=== PATIENT | male | born 1955 | race Hispanic/Latino ===

== ENCOUNTER 2018-02-23 11:53 | Inpatient (IN) | payer OTHER ==
[2018-02-23 11:53] VITALS: BMI 26.4
[2018-02-23 13:43] LABS: BASO # 0.1 K/uL (0.0-0.2)
[2018-02-23 13:50] LABS: BASO % 0.6 % (0.0-2.0); EOS % 0.1 % (0.0-4.0); LYMPH # 1.2 K/uL (1.0-4.3); LYMPH % 11.3 % (20.0-40.0); MEAN CORPUSCULAR HEMOGLOBIN 17.1 pg (27.0-31.0); MEAN CORPUSCULAR HGB CONC 30.2 g/dL (33.0-37.0); MEAN PLATELET VOLUME 8.8 fL (7.2-11.7); MONO % 9.5 % (0.0-10.0); NEUT # 8.4 K/uL (1.8-7.0); NEUT % 78.5 % (50.0-75.0); NRBC % 0.1 % (0.0-2.0); RBC 3.38 Mil/uL (4.40-5.90); RED CELL DISTRIBUTION WIDTH 20.6 % (11.5-14.5); WHITE BLOOD COUNT 10.7 K/uL (4.8-10.8)
[2018-02-23 13:54] LABS: HEMOGLOBIN 5.8 g/dL (12.0-18.0); INR 1.1; MEAN CELL VOLUME 56.6 fL (80.0-94.0); PROTHROMBIN TIME 12.4 SECONDS (9.7-12.2)
--- NOTE | 2018-02-23 14:18 | C.PDOC ---
History Of Present Illness 62 y/o male sent in by center mgr Dr. Jean for low hemoglobin. Bloodwork was done 2 days ago which his hemoglobin was 4 at the time. Patient is complaining of weakness and denies blood in urine or stool, black tarry stool, abdominal pain, or fever. Patient has history of transfusion 4 months ago and had bleeding gastric ulcer. Chief Complaint (Nursing): Abnormal Labs History Per: Patient History/Exam Limitations: no limitations Onset/Duration Of Symptoms: Days Current Symptoms Are (Timing): Still Present Past Medical History Reviewed: Historical Data, Nursing Documentation, Vital Signs Vital Signs: Last Vital Signs Temp 98 F 02/23/18 12:22 Pulse 79 02/23/18 13:38 Resp 14 02/23/18 13:38 BP 127/65 02/23/18 13:38 Pulse Ox 100 02/23/18 13:38 - Medical History PMH: Anemia, Diabetes, Gall Bladder Disease (POLYP/S/P CHOLECYSTECTOMY), HTN Denies: Chronic Kidney Disease Surgical History: Cholecystectomy, Tonsillectomy - [facility] Procedures EXCISION OF DUODENUM, ENDO, DIAGN (10/23/17) EXCISION OF STOMACH, ENDO, DIAGN (10/23/17) TRANSFUSE NONAUT RED BLOOD CELLS IN PERIPH VEIN, PERC (10/23/17) Family History: States: No Known Family Hx - Social History Hx Alcohol Use: Yes Hx Substance Use: No - Immunization History Hx Tetanus Toxoid Vaccination: No Hx Influenza Vaccination: Yes (2017) Hx Pneumococcal Vaccination: No Review Of Systems Except As Marked, All Systems Reviewed And Found Negative. Constitutional: Positive for: Weakness. Negative for: Fever Cardiovascular: Negative for: Chest Pain Respiratory: Negative for: Shortness of Breath Gastrointestinal: Negative for: Abdominal Pain, Hematochezia Genitourinary: Negative for: Dysuria, Hematuria Physical Exam - Physical Exam Appears: Non-toxic, No Acute Distress Skin: Pale Head: Atraumatic, Normacephalic Eye(s): bilateral: Conjunctiva Pale Oral Mucosa: Moist Neck: Supple Cardiovascular: Rhythm Regular, No Murmur Respiratory: Normal Breath Sounds, No Rales, No Rhonchi, No Wheezing Gastrointestinal/Abdominal: Soft, No Tenderness Extremity: Bilateral: Atraumatic, Normal ROM Neurological/Psych: Oriented x3, Normal Speech ED Course And Treatment - Laboratory Results Result Diagrams: 02/23/18 13:38 02/23/18 13:38 Lab Results: PT 12.4 SECONDS (9.7-12.2) H 02/23/18 13:38 INR 1.1 02/23/18 13:38 APTT 26 SECONDS (21-34) 02/23/18 13:38 O2 Sat by Pulse Oximetry: 100 (RA) Pulse Ox Interpretation: Normal Medical Decision Making Medical Decision Making: Plan: --Blood work Disposition - Disposition Disposition: HOSPITALIZED Disposition Time: 14:30 Condition: GUARDED - Clinical Impression Clinical Impression: Symptomatic anemia - Scribe Statement The provider has reviewed the documentation as recorded by the Isa Card Provider Attestation: All medical record entries made by the Isa were at my direction and personally dictated by me. I have reviewed the chart and agree that the record accurately reflects my personal performance of the history, physical exam, medical decision making, and the department course for this patient. I have also personally directed, reviewed, and agree with the discharge instructions and disposition.
[2018-02-23 14:24] LABS: ALB/GLOB RATIO 1.4 (1.0-2.1); ALBUMIN 4.7 g/dL (3.5-5.0); ALT/SGPT 17 U/L (21-72); AST/SGOT 23 U/L (17-59); BLOOD UREA NITROGEN 18 mg/dL (9-20); CALCIUM 9.1 mg/dl (8.6-10.4); GFR NON-AFRICAN AMERICAN > 60
--- NOTE | 2018-02-23 15:02 | CP.PCM.HP ---
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 Patient is also complaining of severe fatigue tiredness and dyspnea on exertion. Patient is a history of iron deficiency anemia as received blood transfusion and iron IV therapy year ago. Patient also had an upper endoscopy done which showed a gastric ulcer which was not bleeding biopsies were negative for any cancer Currently patient is denying any GI symptoms of epigastric pain and nausea hematemesis melena or black stools or reflux symptoms. PAST HIST. Patient has a history of type II diabetes hypertension had bilateral DVT of the lower extremities and has taken blood thinner for a year and discontinued patient also had a hernia operation. PERSONAL HIST: Smoking. N Alcohol. N Allergy N Travel_- . FAMILY HIST : ROS : Constitutional: Negative for weight change, chills, night sweats, fatigue and usage of assist device. Eyes: Negative for redness, swelling, itching, discharge, vision changes, blurry vision, double vision, glaucoma, cataracts, Ears: Negative for hearing loss, ringing, , tinnitus, vertigo Nose: Negative for rhinorrhea, stuffiness, sniffing, itching, postnasal drip, discoloration, nasal congestion and epistaxis. Throat: Negative for throat clearing, sore throat, hoarseness, difficulty swa llowing and difficulty speaking. Respiratory: Negative for cough, chest tightness, sputum or phlegm, chronic cough, hemoptysis, wheezing, snoring at night, pleuritic chest pain and daytime somnolence. Cardiovascular: Negative for chest pain, palpitations, orthopnea, PND, Edema of legs, leg cramps, angina, claudication, , irregular heartbeat, Neurology: Negative for irritability, muscle weakness, numbness and tingling, seizures, tremors, migraines, slurred speech, syncope, memory loss, mood changes, recurrent headaches Gastrointestinal: Negative for difficulty swallowing, diarrhea, constipation, black stools, rectal bleeding, nausea, flatulence, reflux, poor appetite, changes in bowel habits, abdominal pain Genitourinary: Negative for frequent urination, hematuria, discharge, incon tinence, urinary retention, frequent UTI, Psychiatric: Negative for depression, anxiety/panic, suicidal tendencies, Musculoskeletal: Negative for swollen joints, back pain, , neck pain, morning stiffness of joints, . Skin: Negative for rash, ulcers, itching, dry skin and pigmented lesions. P/E: Constitutional: Appears stated age and in no apparent distress. Head: Normocephalic. Ears: External ear canals patent without inflammation. Tympanic membranes intact with normal light reflex and landmark. Eyes: Pupils are central, bilaterally equal, symmetrical and reacts to light with normal movements and no icterus, pallor. Is noted Nose: External nares are patent. Mucosa is pink Mouth-Throat: Good general appearance and condition. No post-pharyngeal/oropharyngeal erythema and ton sillar hypertrophy. Good dental hygiene. Neck-Lymphatic: Neck is supple with normal ROM, no thyromegaly, lymph nodes or masses. JVD is normal with no carotid bruit. Lungs: Clear to percussion and auscultation with bilateral normal air entry. Cardiovascular: S1 and S2 are normal with no murmurs, gallops and rub. GI Exam: No hepatomegaly. Abdomen is soft and non-tender. No Organomegaly , masses or hernias are evident and bowel sounds are normal and active. Neurology: Higher function and all cranial nerves intact, with no gross motor or sensory deficit. Superficial and deep reflexes are normal with downwards planters. No cerebellar deficit with normal gait. Musculoskeletal: No tender spots with normal curvature of the spine with no swelling or restricted ROM of the small and large joints. Extremities: Homans sign absent. Intact pulses with no pitting edema, calf tenderness or skin color changes. Skin: No rash, eruptions or abnormal skin pigmentation LAB/RADIOLOGY: ASSESMENT : Severe symptomatic anemia probably iron deficiency no active bleeding currently noted. Patient will need blood transfusion and possible iron therapy History of hypertension diabetes stable History of DVT in the past. Present on Admission - Present on Admission Any Indicators Present on Admission: No Past Patient History - Infectious Disease Hx of Infectious Diseases: None - Past Medical History & Family History Past Medical History?: Yes - Past Social History Smoking Status: Never Smoked - CARDIAC Hx Hypertension: Yes - PULMONARY Hx Respiratory Disorders: No - NEUROLOGICAL Hx Neurological Disorder: No - HEENT Hx HEENT Problems: Yes Hx Cataracts: Yes (IOLI LEFT) - RENAL Hx Chronic Kidney Disease: No - ENDOCRINE/METABOLIC Hx Endocrine Disorders: Yes Hx Diabetes Mellitus Type 2: Yes - HEMATOLOGICAL/ONCOLOGICAL Hx Anemia: Yes - INTEGUMENTARY Hx Dermatological Problems: No - MUSCULOSKELETAL/RHEUMATOLOGICAL Hx Musculoskeletal Disorders: No - GASTROINTESTINAL Hx Gall Bladder Disease: Yes (POLYP/S/P CHOLECYSTECTOMY) - GENITOURINARY/GYNECOLOGICAL Hx Genitourinary Disorders: No - PSYCHIATRIC Hx Substance Use: No - SURGICAL HISTORY Hx Cholecystectomy: Yes Hx Tonsillectomy: Yes - ANESTHESIA Hx Anesthesia: Yes Hx Anesthesia Reactions: No Hx Malignant Hyperthermia: No Meds Allergies/Adverse Reactions: Allergies Allergy/AdvReac Type Severity Reaction Status Date / Time No Known Allergies Allergy Verified 10/23/17 14:17 Results - Vital Signs Recent Vital Signs: Last Vital Signs Temp 98 F 02/23/18 12:22 Pulse 81 02/23/18 14:38 Resp 12 02/23/18 14:38 BP 132/65 02/23/18 14:38 Pulse Ox 100 02/23/18 14:38 - Labs Result Diagrams: 02/23/18 13:38 02/23/18 13:38 Labs: Laboratory Results - last 24 hr 02/23/18 02/23/18 02/23/18 13:38 13:38 13:38 WBC 10.7 RBC 3.38 L Hgb 5.8 L* D Hct 19.1 L MCV 56.6 L D MCH 17.1 L MCHC 30.2 L RDW 20.6 H Plt Count 402 H MPV 8.8 Neut % (Auto) 78.5 H Lymph % (Auto) 11.3 L Owsley % (Auto) 9.5 Eos % (Auto) 0.1 Baso % (Auto) 0.6 Neut # (Auto) 8.4 H Lymph # (Auto) 1.2 Owsley # (Auto) 1.0 H Eos # (Auto) 0.0 Baso # (Auto) 0.1 PT 12.4 H INR 1.1 APTT 26 Sodium 134 Potassium 4.1 Chloride 98 Carbon Dioxide 21 L Anion Gap 19 BUN 18 Creatinine 0.7 L Est GFR ( Amer) > 60 Est GFR (Non-Af Amer) > 60 Random Glucose 165 H D Calcium 9.1 Total Bilirubin 0.5 AST 23 ALT 17 L D Alkaline Phosphatase 82 Total Protein 8.0 Albumin 4.7 Globulin 3.3 Albumin/Globulin Ratio 1.4 Blood Type Antibody Screen 02/23/18 13:38 WBC RBC Hgb Hct MCV MCH MCHC RDW Plt Count MPV Neut % (Auto) Lymph % (Auto) Owsley % (Auto) Eos % (Auto) Baso % (Auto) Neut # (Auto) Lymph # (Auto) Owsley # (Auto) Eos # (Auto) Baso # (Auto) PT INR APTT Sodium Potassium Chloride Carbon Dioxide Anion Gap BUN Creatinine Est GFR ( Amer) Est GFR (Non-Af Amer) Random Glucose Calcium Total Bilirubin AST ALT Alkaline Phosphatase Total Protein Albumin Globulin Albumin/Globulin Ratio Blood Type B POSITIVE Antibody Screen Negative
[2018-02-23] MEDS: (Novolin R) Insulin Human Regular 100 units/ml vial SC SCH (21:46)
[2018-02-24] MEDS: (Novolin R) Insulin Human Regular 100 units/ml vial SC SCH ×4 (08:00→22:09)
[2018-02-24 08:05] LABS: BASO % 0.5 % (0.0-2.0); EOS # 0.1 K/uL (0.0-0.7); EOS % 1.2 % (0.0-4.0); HEMOGLOBIN 7.2 g/dL (12.0-18.0); LYMPH # 1.4 K/uL (1.0-4.3); LYMPH % 21.2 % (20.0-40.0); MEAN CORPUSCULAR HEMOGLOBIN 19.6 pg (27.0-31.0); MEAN CORPUSCULAR HGB CONC 31.2 g/dL (33.0-37.0); MONO # 0.9 K/uL (0.0-0.8); MONO % 12.6 % (0.0-10.0); NEUT # 4.4 K/uL (1.8-7.0); NEUT % 64.5 % (50.0-75.0); NRBC % 0.2 % (0.0-2.0); RBC 3.66 Mil/uL (4.40-5.90); RED CELL DISTRIBUTION WIDTH 29.1 % (11.5-14.5); WHITE BLOOD COUNT 6.8 K/uL (4.8-10.8)
[2018-02-24 08:14] LABS: MEAN CELL VOLUME 62.8 fL (80.0-94.0)
[2018-02-24 08:54] LABS: ALB/GLOB RATIO 1.2 (1.0-2.1); ALBUMIN 3.7 g/dL (3.5-5.0); ALT/SGPT 22 U/L (21-72); AST/SGOT 16 U/L (17-59); BLOOD UREA NITROGEN 17 mg/dL (9-20); CALCIUM 8.6 mg/dl (8.6-10.4); GFR NON-AFRICAN AMERICAN > 60
[2018-02-24 12:50] LABS: IRON 17 ug/dL (49-181)
[2018-02-24 13:02] LABS: % IRON SATURATION 4 (20-55); TOTAL IRON BINDING CAPACITY 457 ug/dL (250-450)
--- NOTE | 2018-02-24 14:30 | CP.PCM.PN ---
Subjective - Date & Time of Evaluation Date of Evaluation: 02/24/18 Time of Evaluation: 14:29 - Subjective Subjective: CHIEF COMPLAINTS TODAY : No specific complaints After 2 packed cells hemoglobin is 7.5 ROS. HEENT : N. Resp : No cough, wheezing ,pleuritic CP ,or hemoptysis Cardio : No anginal CP, PND, orthopnea, palpitation GI : No abd.pain, n/v ,diarrhea or GI bleeding . [employer] : No headache, vertigo, focal deficit. Musculoskel : No joint swelling , Derm : No rash Psych : Normal affect. Ext : No swelling ,calf pain PE. Pt. is alert awake in no distress. V.S As noted in the chart Head ,ear nose,throat and eyes : Normal. Neck : Supple with normal carotids. Lungs: Clear air entry. Heart : S1 & S2 normal with S4. No murmur. Abd : Soft non tender with normal bowel sounds. Neuro : Moves all ext. with no localized deficit. Ext : No edema with intact pulses.Non tender calves Derm : No rashes or decubitus ulcer. LABS/RADIOLOGY: CT scan of the abdomen shows enteritis and peptic ulcer disease ASSESSMENT/PLAN : Discussed with hematology for further workup. Objective - Vital Signs/Intake and Output Vital Signs (last 24 hours): Temp Pulse Resp BP Pulse Ox 99.0 F 72 18 112/68 98 02/24/18 07:00 02/24/18 07:00 02/24/18 07:00 02/24/18 07:00 02/24/18 07:00 Intake and Output: 02/24/18 02/24/18 11:59 23:59 Intake Total 485 Balance 485 - Medications Medications: Current Medications Famotidine (Pepcid) 20 mg IVP Q12 [facility] Last Admin: 02/24/18 09:43 Dose: 20 mg Insulin Human Regular (Novolin R) 0 unit SC ACHS [facility]; Protocol Last Admin: 02/24/18 13:03 Dose: 3 units Lisinopril (Zestril) 10 mg PO DAILY [facility] Last Admin: 02/24/18 09:42 Dose: 10 mg Metformin HCl (Glucophage) 500 mg PO DAILY [facility] Last Admin: 02/24/18 09:42 Dose: 500 mg - Labs Labs: 02/24/18 07:22 02/24/18 07:22 PT 12.4 SECONDS (9.7-12.2) H 02/23/18 13:38 INR 1.1 02/23/18 13:38 APTT 26 SECONDS (21-34) 02/23/18 13:38
[2018-02-24] MEDS ORDERED: Ferric Sodium Gluconat Complex 62.5 mg/5 ml Vial IVPB SCH (17:00)
[2018-02-24] MEDS ORDERED: Ferric Sodium Gluconat Complex 125 MG in Sodium Chloride 0.9% 100 ML IVPB SCH (17:00)
--- NOTE | 2018-02-24 22:14 | CP.PCM.CON ---
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 The patient is known to me from 10/2017 and was found to have iron deficiency anemia secondary to a gastric ulcer s/p H.pylori treatment. He cam to the office a few days ago complaining to dyspnea with exertion, similar to when he was anemic in the past. His hgb was found to be 5.5 and sent to the hospital. He is currently s/p 2U PRBC and notes to feeling better. He denies abnormal bleeding and bruising. Past medical history: DM, unprovoked LLE DVT, iron deficiency anemia Past surgical history: Hernia repair. Family history: Denies hematologic and oncologic problems Social history: Denies tobacco, alcohol, and illicit drug use. Allergies: NKA Review of systems: All remaining review of systems including HEENT, cardiovascular, respiratory, gastrointestinal, genitourinary, musculoskeletal, dermatologic, neurologic, and psychiatric are negative unless mentioned in the HPI. Past Patient History - Infectious Disease Hx of Infectious Diseases: None - Past Medical History & Family History Past Medical History?: Yes - Past Social History Smoking Status: Never Smoked - CARDIAC Hx Hypertension: Yes - PULMONARY Hx Respiratory Disorders: No - NEUROLOGICAL Hx Neurological Disorder: No - HEENT Hx HEENT Problems: Yes Hx Cataracts: Yes (IOLI LEFT) - RENAL Hx Chronic Kidney Disease: No - ENDOCRINE/METABOLIC Hx Endocrine Disorders: Yes Hx Diabetes Mellitus Type 2: Yes - HEMATOLOGICAL/ONCOLOGICAL Hx Anemia: Yes - INTEGUMENTARY Hx Dermatological Problems: No - MUSCULOSKELETAL/RHEUMATOLOGICAL Hx Musculoskeletal Disorders: No - GASTROINTESTINAL Hx Gall Bladder Disease: Yes (POLYP/S/P CHOLECYSTECTOMY) - GENITOURINARY/GYNECOLOGICAL Hx Genitourinary Disorders: No - PSYCHIATRIC Hx Substance Use: No - SURGICAL HISTORY Hx Cholecystectomy: Yes Hx Tonsillectomy: Yes - ANESTHESIA Hx Anesthesia: Yes Hx Anesthesia Reactions: No Hx Malignant Hyperthermia: No Meds Allergies/Adverse Reactions: Allergies Allergy/AdvReac Type Severity Reaction Status Date / Time No Known Allergies Allergy Verified 10/23/17 14:17 - Medications Medications: Current Medications Famotidine (Pepcid) 20 mg IVP Q12 [facility] Last Admin: 02/24/18 21:34 Dose: 20 mg Ferric Sodium Gluconate Complex 125 mg/ Sodium Chloride 110 mls @ 100 mls/hr IVPB 02/24/18 [facility] Last Admin: 02/24/18 17:58 Dose: 100 mls/hr Insulin Human Regular (Novolin R) 0 unit SC ACHS [facility]; Protocol Last Admin: 02/24/18 18:02 Dose: Not Given Lisinopril (Zestril) 10 mg PO DAILY [facility] Last Admin: 02/24/18 09:42 Dose: 10 mg Metformin HCl (Glucophage) 500 mg PO DAILY [facility] Last Admin: 02/24/18 09:42 Dose: 500 mg Physical Exam - Head Exam Head Exam: ATRAUMATIC - Eye Exam Eye Exam: Normal appearance - ENT Exam ENT Exam: Mucous Membranes Dry - Respiratory Exam Respiratory Exam: NORMAL BREATHING PATTERN - Cardiovascular Exam Cardiovascular Exam: +S1, +S2 - GI/Abdominal Exam GI & Abdominal Exam: Normal Bowel Sounds - Extremities Exam Extremities exam: Positive for: normal inspection - Neurological Exam Neurological exam: Oriented x3 - Psychiatric Exam Psychiatric exam: Normal Affect, Normal Mood - Skin Skin Exam: Warm Results - Vital Signs Recent Vital Signs: Last Vital Signs Temp 99.3 F 02/24/18 15:00 Pulse 71 02/24/18 15:00 Resp 20 02/24/18 15:00 BP 118/64 02/24/18 15:00 Pulse Ox 100 02/24/18 15:00 - Labs Result Diagrams: 02/24/18 07:22 02/24/18 07:22 Labs: Laboratory Results - last 24 hr 02/23/18 02/24/18 02/24/18 21:25 06:21 07:22 WBC 6.8 RBC 3.66 L Hgb 7.2 L Hct 23.0 L MCV 62.8 L D MCH 19.6 L MCHC 31.2 L RDW 29.1 H Plt Count 306 MPV 9.0 Neut % (Auto) 64.5 Lymph % (Auto) 21.2 Reeves % (Auto) 12.6 H Eos % (Auto) 1.2 Baso % (Auto) 0.5 Neut # (Auto) 4.4 Lymph # (Auto) 1.4 Reeves # (Auto) 0.9 H Eos # (Auto) 0.1 Baso # (Auto) 0.0 Differential Comment Sodium Potassium Chloride Carbon Dioxide Anion Gap BUN Creatinine Est GFR ( Amer) Est GFR (Non-Af Amer) POC Glucose (mg/dL) 215 H 143 H Random Glucose Calcium Iron TIBC % Saturation Total Bilirubin AST ALT Alkaline Phosphatase Total Protein Albumin Globulin Albumin/Globulin Ratio 02/24/18 02/24/18 02/24/18 07:22 11:16 12:22 WBC RBC Hgb Hct MCV MCH MCHC RDW Plt Count MPV Neut % (Auto) Lymph % (Auto) Reeves % (Auto) Eos % (Auto) Baso % (Auto) Neut # (Auto) Lymph # (Auto) Reeves # (Auto) Eos # (Auto) Baso # (Auto) Differential Comment Sodium 135 Potassium 4.3 Chloride 103 Carbon Dioxide 25 Anion Gap 12 BUN 17 Creatinine 0.8 Est GFR ( Amer) > 60 Est GFR (Non-Af Amer) > 60 POC Glucose (mg/dL) 219 H Random Glucose 134 H Calcium 8.6 Iron 17 L TIBC 457 H % Saturation 4 L Total Bilirubin 0.8 AST 16 L D ALT 22 Alkaline Phosphatase 66 Total Protein 6.7 Albumin 3.7 Globulin 3.0 Albumin/Globulin Ratio 1.2 02/24/18 17:12 WBC RBC Hgb Hct MCV MCH MCHC RDW Plt Count MPV Neut % (Auto) Lymph % (Auto) Reeves % (Auto) Eos % (Auto) Baso % (Auto) Neut # (Auto) Lymph # (Auto) Reeves # (Auto) Eos # (Auto) Baso # (Auto) Differential Comment Sodium Potassium Chloride Carbon Dioxide Anion Gap BUN Creatinine Est GFR ( Amer) Est GFR (Non-Af Amer) POC Glucose (mg/dL) 135 H Random Glucose Calcium Iron TIBC % Saturation Total Bilirubin AST ALT Alkaline Phosphatase Total Protein Albumin Globulin Albumin/Globulin Ratio Assessment & Plan (1) Anemia Assessment and Plan: work up consistent with iron deficiency anemia likely chronic GI blood loss; recommend GI evaluation s/p 2U PRBC on IV iron Thank you for this interesting consult. Status: Acute
[2018-02-25 06:43] LABS: BASO % 0.6 % (0.0-2.0); EOS # 0.1 K/uL (0.0-0.7); EOS % 1.9 % (0.0-4.0); HEMOGLOBIN 6.8 g/dL (12.0-18.0); LYMPH # 1.4 K/uL (1.0-4.3); LYMPH % 17.7 % (20.0-40.0); MEAN CELL VOLUME 62.4 fL (80.0-94.0); MEAN CORPUSCULAR HEMOGLOBIN 19.3 pg (27.0-31.0); MEAN CORPUSCULAR HGB CONC 30.9 g/dL (33.0-37.0); MEAN PLATELET VOLUME 8.6 fL (7.2-11.7); MONO % 12.2 % (0.0-10.0); NEUT # 5.4 K/uL (1.8-7.0); NEUT % 67.6 % (50.0-75.0); NRBC % 0.1 % (0.0-2.0); RBC 3.54 Mil/uL (4.40-5.90); RED CELL DISTRIBUTION WIDTH 28.5 % (11.5-14.5)
[2018-02-25 07:05] LABS: ALB/GLOB RATIO 1.2 (1.0-2.1); ALBUMIN 3.5 g/dL (3.5-5.0); ALT/SGPT 20 U/L (21-72); AST/SGOT 15 U/L (17-59); BLOOD UREA NITROGEN 17 mg/dL (9-20); CALCIUM 8.6 mg/dl (8.6-10.4); GFR NON-AFRICAN AMERICAN > 60
[2018-02-25] MEDS: (Novolin R) Insulin Human Regular 100 units/ml vial SC SCH ×4 (07:59→21:10)
--- NOTE | 2018-02-25 10:37 | CP.PCM.CON ---
<Reymundo Lacy - Last Filed: 02/25/18 11:43> History of Present Illness - History of Present Illness History of Present Illness: GI Fellow PGY4, consult note. Cristofer St is a very pleasant 62M presenting for anemia. Patient was sent in by Dr. Yusuf after routine blood tests, treating iron deficiency anemia. He admits fatigue and generalized weakness. He was give 2u pRBCs and patient is feeling better. He denies taking anticoagulation, acid suppressants, NSAIDs including baby aspirin. He denies nausea, vomiting, hematemesis, blood in stool. Last BM was light brown this AM. He last ate at 7AM. Patient is otherwise healthy. Importantly, patient was recently found to have duodenal ulcer 4 months ago as well as H. pylori. He has been treated and eradication confirmed by breath test. PMHx - as above. Hx DVT, not on OAC at this time. PSHx - as above. Colonoscopy 2016. FMHx - unremarkable SocHx - Denies etoh, smoking. Lives independently at home. 12pt ROS completed and negative except for above. Past Patient History - Infectious Disease Hx of Infectious Diseases: None - Past Medical History & Family History Past Medical History?: Yes - Past Social History Smoking Status: Never Smoked - CARDIAC Hx Hypertension: Yes - PULMONARY Hx Respiratory Disorders: No - NEUROLOGICAL Hx Neurological Disorder: No - HEENT Hx HEENT Problems: Yes Hx Cataracts: Yes (IOLI LEFT) - RENAL Hx Chronic Kidney Disease: No - ENDOCRINE/METABOLIC Hx Endocrine Disorders: Yes Hx Diabetes Mellitus Type 2: Yes - HEMATOLOGICAL/ONCOLOGICAL Hx Anemia: Yes - INTEGUMENTARY Hx Dermatological Problems: No - MUSCULOSKELETAL/RHEUMATOLOGICAL Hx Musculoskeletal Disorders: No - GASTROINTESTINAL Hx Gall Bladder Disease: Yes (POLYP/S/P CHOLECYSTECTOMY) - GENITOURINARY/GYNECOLOGICAL Hx Genitourinary Disorders: No - PSYCHIATRIC Hx Substance Use: No - SURGICAL HISTORY Hx Cholecystectomy: Yes Hx Tonsillectomy: Yes - ANESTHESIA Hx Anesthesia: Yes Hx Anesthesia Reactions: No Hx Malignant Hyperthermia: No Meds Allergies/Adverse Reactions: Allergies Allergy/AdvReac Type Severity Reaction Status Date / Time No Known Allergies Allergy Verified 10/23/17 14:17 - Medications Medications: Current Medications Ferric Sodium Gluconate Complex 125 mg/ Sodium Chloride 110 mls @ 100 mls/hr IVPB 02/24/18 [facility] Last Admin: 02/24/18 17:58 Dose: 100 mls/hr Insulin Human Regular (Novolin R) 0 unit SC ACHS [facility]; Protocol Last Admin: 02/25/18 07:59 Dose: Not Given Lisinopril (Zestril) 10 mg PO DAILY [facility] Last Admin: 02/25/18 09:24 Dose: 10 mg Metformin HCl (Glucophage) 500 mg PO DAILY [facility] Last Admin: 02/25/18 09:24 Dose: 500 mg Pantoprazole Sodium (Protonix Inj) 40 mg IVP Q12H [facility] Physical Exam - Constitutional Appears: Well, Non-toxic - Head Exam Head Exam: ATRAUMATIC, NORMAL INSPECTION - Eye Exam Eye Exam: EOMI, Normal appearance - ENT Exam ENT Exam: Mucous Membranes Moist, Normal Exam - Respiratory Exam Respiratory Exam: Clear to Auscultation Bilateral, NORMAL BREATHING PATTERN. absent: Wheezes - Cardiovascular Exam Cardiovascular Exam: REGULAR RHYTHM, +S1, +S2 - GI/Abdominal Exam GI & Abdominal Exam: Normal Bowel Sounds, Soft. absent: Organomegaly, Tenderness - Rectal Exam Rectal Exam: Deferred - Extremities Exam Extremities exam: Positive for: normal inspection. Negative for: pedal edema - Neurological Exam Neurological exam: Alert, CN II-XII Intact, Oriented x3 - Psychiatric Exam Psychiatric exam: Normal Affect, Normal Mood - Skin Skin Exam: Pallor, Warm Results - Vital Signs Recent Vital Signs: Last Vital Signs Temp 98.6 F 02/25/18 07:00 Pulse 78 02/25/18 07:00 Resp 18 02/25/18 07:00 BP 137/68 02/25/18 07:00 Pulse Ox 99 02/25/18 07:00 - Labs Result Diagrams: 02/25/18 06:36 02/25/18 06:36 Labs: Laboratory Results - last 24 hr 02/24/18 02/24/18 02/24/18 11:16 12:22 17:12 WBC RBC Hgb Hct MCV MCH MCHC RDW Plt Count MPV Neut % (Auto) Lymph % (Auto) [place] % (Auto) Eos % (Auto) Baso % (Auto) Neut # (Auto) Lymph # (Auto) [place] # (Auto) Eos # (Auto) Baso # (Auto) Sodium Potassium Chloride Carbon Dioxide Anion Gap BUN Creatinine Est GFR ( Amer) Est GFR (Non-Af Amer) POC Glucose (mg/dL) 219 H 135 H Random Glucose Calcium Iron 17 L TIBC 457 H % Saturation 4 L Total Bilirubin AST ALT Alkaline Phosphatase Total Protein Albumin Globulin Albumin/Globulin Ratio 02/24/18 02/25/18 02/25/18 21:55 06:28 06:36 WBC 8.0 RBC 3.54 L Hgb 6.8 L Hct 22.1 L MCV 62.4 L MCH 19.3 L MCHC 30.9 L RDW 28.5 H Plt Count 286 MPV 8.6 Neut % (Auto) 67.6 Lymph % (Auto) 17.7 L [place] % (Auto) 12.2 H Eos % (Auto) 1.9 Baso % (Auto) 0.6 Neut # (Auto) 5.4 Lymph # (Auto) 1.4 [place]y # (Auto) 1.0 H Eos # (Auto) 0.1 Baso # (Auto) 0.0 Sodium Potassium Chloride Carbon Dioxide Anion Gap BUN Creatinine Est GFR ( Amer) Est GFR (Non-Af Amer) POC Glucose (mg/dL) 165 H 131 H Random Glucose Calcium Iron TIBC % Saturation Total Bilirubin AST ALT Alkaline Phosphatase Total Protein Albumin Globulin Albumin/Globulin Ratio 02/25/18 06:36 WBC RBC Hgb Hct MCV MCH MCHC RDW Plt Count MPV Neut % (Auto) Lymph % (Auto) [place] % (Auto) Eos % (Auto) Baso % (Auto) Neut # (Auto) Lymph # (Auto) [place] # (Auto) Eos # (Auto) Baso # (Auto) Sodium 136 Potassium 4.3 Chloride 104 Carbon Dioxide 24 Anion Gap 12 BUN 17 Creatinine 0.8 Est GFR ( Amer) > 60 Est GFR (Non-Af Amer) > 60 POC Glucose (mg/dL) Random Glucose 129 H Calcium 8.6 Iron TIBC % Saturation Total Bilirubin 0.4 AST 15 L ALT 20 L Alkaline Phosphatase 64 Total Protein 6.3 Albumin 3.5 Globulin 2.8 Albumin/Globulin Ratio 1.2 Assessment & Plan - Assessment and Plan (Free Text) Assessment: #Duodenal ulcer #h/o H. 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 -Maintain Hb above 7. -Agree with IV Fe transfusion, defer to hematology -Start PPI IV BID -Non-emergent EGD should be done. This can be done as an outpatient. -Avoid NSAID, OAC -Cardiac diet - Date & Time Date: 02/25/18 Time: 10:38 <Ken Yee - Last Filed: 02/25/18 12:27> Meds - Medications Medications: Current Medications Ferric Sodium Gluconate Complex 125 mg/ Sodium Chloride 110 mls @ 100 mls/hr IVPB 02/24/18 [facility] Last Admin: 02/24/18 17:58 Dose: 100 mls/hr Insulin Human Regular (Novolin R) 0 unit SC ACHS [facility]; Protocol Last Admin: 02/25/18 07:59 Dose: Not Given Lisinopril (Zestril) 10 mg PO DAILY [facility] Last Admin: 02/25/18 09:24 Dose: 10 mg Metformin HCl (Glucophage) 500 mg PO DAILY [facility] Last Admin: 02/25/18 09:24 Dose: 500 mg Pantoprazole Sodium (Protonix Inj) 40 mg IVP Q12H [facility] Results - Vital Signs Recent Vital Signs: Last Vital Signs Temp 98.6 F 02/25/18 07:00 Pulse 78 02/25/18 07:00 Resp 18 02/25/18 07:00 BP 137/68 02/25/18 07:00 Pulse Ox 99 02/25/18 07:00 - Labs Result Diagrams: 02/25/18 06:36 02/25/18 06:36 Labs: Laboratory Results - last 24 hr 02/23/18 02/24/18 02/24/18 13:38 11:16 12:22 WBC RBC Hgb Hct MCV MCH MCHC RDW Plt Count MPV Neut % (Auto) Lymph % (Auto) [place] % (Auto) Eos % (Auto) Baso % (Auto) Neut # (Auto) Lymph # (Auto) [place] # (Auto) Eos # (Auto) Baso # (Auto) Sodium Potassium Chloride Carbon Dioxide Anion Gap BUN Creatinine Est GFR ( Amer) Est GFR (Non-Af Amer) POC Glucose (mg/dL) 219 H Random Glucose Calcium Iron 17 L TIBC 457 H % Saturation 4 L Total Bilirubin AST ALT Alkaline Phosphatase Total Protein Albumin Globulin Albumin/Globulin Ratio Blood Type B POSITIVE Antibody Screen Negative 02/24/18 02/24/18 02/25/18 17:12 21:55 06:28 WBC RBC Hgb Hct MCV MCH MCHC RDW Plt Count MPV Neut % (Auto) Lymph % (Auto) [place] % (Auto) Eos % (Auto) Baso % (Auto) Neut # (Auto) Lymph # (Auto) [place] # (Auto) Eos # (Auto) Baso # (Auto) Sodium Potassium Chloride Carbon Dioxide Anion Gap BUN Creatinine Est GFR ( Amer) Est GFR (Non-Af Amer) POC Glucose (mg/dL) 135 H 165 H 131 H Random Glucose Calcium Iron TIBC % Saturation Total Bilirubin AST ALT Alkaline Phosphatase Total Protein Albumin Globulin Albumin/Globulin Ratio Blood Type Antibody Screen 02/25/18 02/25/18 06:36 06:36 WBC 8.0 RBC 3.54 L Hgb 6.8 L Hct 22.1 L MCV 62.4 L MCH 19.3 L MCHC 30.9 L RDW 28.5 H Plt Count 286 MPV 8.6 Neut % (Auto) 67.6 Lymph % (Auto) 17.7 L S[place]y % (Auto) 12.2 H Eos % (Auto) 1.9 Baso % (Auto) 0.6 Neut # (Auto) 5.4 Lymph # (Auto) 1.4 S[place]y # (Auto) 1.0 H Eos # (Auto) 0.1 Baso # (Auto) 0.0 Sodium 136 Potassium 4.3 Chloride 104 Carbon Dioxide 24 Anion Gap 12 BUN 17 Creatinine 0.8 Est GFR ( Amer) > 60 Est GFR (Non-Af Amer) > 60 POC Glucose (mg/dL) Random Glucose 129 H Calcium 8.6 Iron TIBC % Saturation Total Bilirubin 0.4 AST 15 L ALT 20 L Alkaline Phosphatase 64 Total Protein 6.3 Albumin 3.5 Globulin 2.8 Albumin/Globulin Ratio 1.2 Blood Type Antibody Screen Attending/Attestation - Attestation I have personally seen and examined this patient.: Yes I have fully participated in the care of the patient.: Yes I have reviewed all pertinent clinical information: Yes Notes (Text): 02/25/18 12:21 I have seen and examined patient with GI fellow. Agree with above documentation with the following additions. In brief, this is a 62 year old male with history of duodenal ulcer, iron deficiency anemia, helicobacter pylori gastritis s/p ancelmo atment with breath test confirmation of eradication, DM, HTN, who was sent to hospital by portable canteen operator for evaluation of progressive anemia. He reports increased fatigue for the past few weeks with dyspnea on exertion. He otherwise denies abdominal pain, nausea, vomiting, fever/chills, weight loss, rectal bleeding, melena, or change in bowel habits. He denies NSAID use. He had a normal formed light brown colored bowel movement this morning. He had a colonoscopy in October 2015 which showed adenomatous polyps and diverticulosis. Recent EGD in October 2017 showed a large cratered duodenal ulcer, HP+ s/p treatment, was asked to repeat in 2 months to ensure healing which he did not follow through on. Iron deficiency anemia, symptomatic with dyspnea on exertion History of duodenal ulcer DM / HTN - Diet as tolerated - Continue to monitor H/H, s/p PRBC transfusion - Continue with PPI therapy - Continue with iron replacement therapy, follow up hematology recommendations - Patient would benefit from repeat EGD evaluation to ensure ulcer healing, this can be scheduled electively as outpatient, will arrange for office visit next week
--- NOTE | 2018-02-25 11:23 | CP.PCM.PN ---
Subjective - Date & Time of Evaluation Date of Evaluation: 02/25/18 Time of Evaluation: 11:22 - Subjective Subjective: CHIEF COMPLAINTS TODAY : No specific complaints After 2 packed cells hemoglobin has dropped to 6.8 ROS. HEENT : N. Resp : No cough, wheezing ,pleuritic CP ,or hemoptysis Cardio : No anginal CP, PND, orthopnea, palpitation GI : No abd.pain, n/v ,diarrhea or GI bleeding . ASSISTANCE REPRESENTATIVE : No headache, vertigo, focal deficit. Musculoskel : No joint swelling , Derm : No rash Psych : Normal affect. Ext : No swelling ,calf pain PE. Pt. is alert awake in no distress. V.S As noted in the chart Head ,ear nose,throat and eyes : Normal. Neck : Supple with normal carotids. Lungs: Clear air entry. Heart : S1 & S2 normal with S4. No murmur. Abd : Soft non tender with normal bowel sounds. Neuro : Moves all ext. with no localized deficit. Ext : No edema with intact pulses.Non tender calves Derm : No rashes or decubitus ulcer. LABS/RADIOLOGY: CT scan of the abdomen shows enteritis and peptic ulcer disease ASSESSMENT/PLAN : Discussed with hematology for further workup. transfusion Gi eval Objective - Vital Signs/Intake and Output Vital Signs (last 24 hours): Temp Pulse Resp BP Pulse Ox 98.6 F 78 18 137/68 99 02/25/18 07:00 02/25/18 07:00 02/25/18 07:00 02/25/18 07:00 02/25/18 07:00 - Medications Medications: Current Medications Ferric Sodium Gluconate Complex 125 mg/ Sodium Chloride 110 mls @ 100 mls/hr IVPB 02/24/18 [facility] Last Admin: 02/24/18 17:58 Dose: 100 mls/hr Insulin Human Regular (Novolin R) 0 unit SC ACHS [facility]; Protocol Last Admin: 02/25/18 07:59 Dose: Not Given Lisinopril (Zestril) 10 mg PO DAILY [facility] Last Admin: 02/25/18 09:24 Dose: 10 mg Metformin HCl (Glucophage) 500 mg PO DAILY [facility] Last Admin: 02/25/18 09:24 Dose: 500 mg Pantoprazole Sodium (Protonix Inj) 40 mg IVP Q12H [facility] - Labs Labs: 02/25/18 06:36 02/25/18 06:36 PT 12.4 SECONDS (9.7-12.2) H 02/23/18 13:38 INR 1.1 02/23/18 13:38 APTT 26 SECONDS (21-34) 02/23/18 13:38
--- NOTE | 2018-02-25 20:51 | CP.PCM.PN ---
Subjective - Date & Time of Evaluation Date of Evaluation: 02/25/18 Time of Evaluation: 19:00 - Subjective Subjective: No complaints, receiving PRBC transfusion. Objective - Vital Signs/Intake and Output Vital Signs (last 24 hours): Temp Pulse Resp BP Pulse Ox 98.6 F 70 20 136/72 99 02/25/18 20:08 02/25/18 20:08 02/25/18 20:08 02/25/18 20:08 02/25/18 15:50 Intake and Output: 02/25/18 02/26/18 18:59 06:59 Intake Total 0 325 Balance 0 325 - Medications Medications: Current Medications Ferric Sodium Gluconate Complex 125 mg/ Sodium Chloride 110 mls @ 100 mls/hr IVPB 02/24/18 [facility] Last Admin: 02/24/18 17:58 Dose: 100 mls/hr Insulin Human Regular (Novolin R) 0 unit SC ACHS [facility]; Protocol Last Admin: 02/25/18 17:44 Dose: 3 units Lisinopril (Zestril) 10 mg PO DAILY [facility] Last Admin: 02/25/18 09:24 Dose: 10 mg Metformin HCl (Glucophage) 500 mg PO DAILY [facility] Last Admin: 02/25/18 09:24 Dose: 500 mg Pantoprazole Sodium (Protonix Inj) 40 mg IVP Q12H [facility] Last Admin: 02/25/18 11:00 Dose: 40 mg - Labs Labs: 02/25/18 06:36 02/25/18 06:36 PT 12.4 SECONDS (9.7-12.2) H 02/23/18 13:38 INR 1.1 02/23/18 13:38 APTT 26 SECONDS (21-34) 02/23/18 13:38 - Head Exam Head Exam: ATRAUMATIC - Eye Exam Eye Exam: Normal appearance - ENT Exam ENT Exam: Mucous Membranes Dry - Respiratory Exam Respiratory Exam: NORMAL BREATHING PATTERN - Cardiovascular Exam Cardiovascular Exam: +S1, +S2 - GI/Abdominal Exam GI & Abdominal Exam: Normal Bowel Sounds Assessment and Plan (1) Anemia Assessment & Plan: iron deficiency anemia seen by GI; outpatient endoscopy to receive 2 additional units PRBC today cont. IV iron Status: Acute
[2018-02-25 22:58] LABS: URINE BACTERIA RARE (<OCC); URINE BILIRUBIN NEGATIVE (NEGATIVE); URINE BLOOD NEGATIVE (NEGATIVE); URINE CLARITY Clear (Clear); URINE COLOR Yellow (YELLOW); URINE GLUCOSE (UA) NORMAL (Normal); URINE LEUKOCYTE ESTERASE NEG Leu/uL (Negative); URINE PROTEIN NEGATIVE (NEGATIVE); URINE UROBILINOGEN NORMAL mg/dL (0.2-1.0)
[2018-02-26 06:56] LABS: BASO % 0.5 % (0.0-2.0); EOS # 0.1 K/uL (0.0-0.7); EOS % 1.3 % (0.0-4.0); HEMOGLOBIN 8.9 g/dL (12.0-18.0); LYMPH # 1.4 K/uL (1.0-4.3); LYMPH % 15.5 % (20.0-40.0); MEAN CELL VOLUME 66.3 fL (80.0-94.0); MEAN CORPUSCULAR HEMOGLOBIN 21.2 pg (27.0-31.0); MEAN PLATELET VOLUME 8.8 fL (7.2-11.7); MONO % 11.4 % (0.0-10.0); NEUT # 6.6 K/uL (1.8-7.0); NEUT % 71.3 % (50.0-75.0); NRBC % 0.1 % (0.0-2.0); RBC 4.18 Mil/uL (4.40-5.90); RED CELL DISTRIBUTION WIDTH 32.1 % (11.5-14.5); WHITE BLOOD COUNT 9.2 K/uL (4.8-10.8)
[2018-02-26] MEDS: (Novolin R) Insulin Human Regular 100 units/ml vial SC SCH ×4 (07:30→22:32)
--- NOTE | 2018-02-26 08:02 | CP.PCM.PN ---
<Mack Hoff - Last Filed: 02/26/18 09:50> Subjective - Date & Time of Evaluation Date of Evaluation: 02/26/18 Time of Evaluation: 08:45 - Subjective Subjective: PGY-4 GI Fellow Prog Note Pt lying in bed when seen this AM. States he is feeling well post-PRBC transfusions. Has been ambulating halls without symptoms. Tolerating diet and reported brown BM overnight. 5 point ROS negative other than stated above Objective - Vital Signs/Intake and Output Vital Signs (last 24 hours): Temp Pulse Resp BP Pulse Ox 98.1 F 62 20 146/77 98 02/26/18 00:31 02/26/18 00:31 02/26/18 00:31 02/26/18 00:31 02/25/18 23:05 Intake and Output: 02/26/18 02/26/18 06:59 18:59 Intake Total 650 Balance 650 - Medications Medications: Current Medications Ferric Sodium Gluconate Complex 125 mg/ Sodium Chloride 110 mls @ 100 mls/hr IVPB 02/24/18 [facility] Last Admin: 02/24/18 17:58 Dose: 100 mls/hr Insulin Human Regular (Novolin R) 0 unit SC ACHS [facility]; Protocol Last Admin: 02/26/18 07:30 Dose: Not Given Lisinopril (Zestril) 10 mg PO DAILY [facility] Last Admin: 02/25/18 09:24 Dose: 10 mg Metformin HCl (Glucophage) 500 mg PO DAILY [facility] Last Admin: 02/25/18 09:24 Dose: 500 mg Pantoprazole Sodium (Protonix Inj) 40 mg IVP Q12H [facility] Last Admin: 02/25/18 21:24 Dose: 40 mg - Labs Labs: 02/26/18 06:44 02/25/18 06:36 PT 12.4 SECONDS (9.7-12.2) H 02/23/18 13:38 INR 1.1 02/23/18 13:38 APTT 26 SECONDS (21-34) 02/23/18 13:38 - Constitutional Appears: Well, No Acute Distress - Head Exam Head Exam: ATRAUMATIC, NORMAL INSPECTION - Eye Exam Eye Exam: EOMI. absent: Scleral icterus - ENT Exam ENT Exam: Mucous Membranes Moist. absent: Mucous Membranes Dry - Respiratory Exam Respiratory Exam: NORMAL BREATHING PATTERN. absent: Accessory Muscle Use, Respiratory Distress - GI/Abdominal Exam GI & Abdominal Exam: Soft, Normal Bowel Sounds. absent: Bruit, Distended, Firm, Guarding, Rigid, Tenderness, Mass, Organomegaly, Pulsatile Mass, Rebound Assessment and Plan - Assessment and Plan (Free Text) Assessment: #Chronic blood loss anemia likely from GI source: Hgb hyperresponded to 2 units PRBCs. #Duodenal ulcer #h/o H. pylori, treated #Iron deficiency anemia #DM, HTN Plan: -Hgb stable post transfusion -Agree with Fe supplementation, defer to hematology -PPI IV BID-> PO Daily -EGD as outpatient -Avoid NSAID, OAC -Cardiac diet Pt seen and examined with Dr. Yee; please see attestation for further recs/changes. <Ken Yee - Last Filed: 02/26/18 10:00> Objective - Vital Signs/Intake and Output Vital Signs (last 24 hours): Temp Pulse Resp BP Pulse Ox 97.3 F L 80 20 143/75 96 02/26/18 08:23 02/26/18 09:29 02/26/18 08:23 02/26/18 09:29 02/26/18 08:23 Intake and Output: 02/26/18 02/26/18 06:59 18:59 Intake Total 650 Balance 650 - Medications Medications: Current Medications Ferric Sodium Gluconate Complex 125 mg/ Sodium Chloride 110 mls @ 100 mls/hr IVPB 02/24/18 [facility] Last Admin: 02/24/18 17:58 Dose: 100 mls/hr Insulin Human Regular (Novolin R) 0 unit SC ACHS [facility]; Protocol Last Admin: 02/26/18 07:30 Dose: Not Given Lisinopril (Zestril) 10 mg PO DAILY [facility] Last Admin: 02/26/18 09:29 Dose: 10 mg Metformin HCl (Glucophage) 500 mg PO DAILY [facility] Last Admin: 02/26/18 09:29 Dose: 500 mg Pantoprazole Sodium (Protonix Ec Tab) 40 mg PO DAILY [facility] - Labs Labs: 02/26/18 06:44 02/25/18 06:36 PT 12.4 SECONDS (9.7-12.2) H 02/23/18 13:38 INR 1.1 02/23/18 13:38 APTT 26 SECONDS (21-34) 02/23/18 13:38 Attending/Attestation - Attestation I have personally seen and examined this patient.: Yes I have fully participated in the care of the patient.: Yes I have reviewed all pertinent clinical information, including history, physical exam and plan: Yes Notes (Text): 02/26/18 09:57 I have seen and examined patient with GI fellow. He is seen ambulating in hallway, appears quite comfortable in good spirits. No acute events overnight, he denies abdominal pain, nausea, vomiting, fever/chills. He had a normal formed mejia colored bowel movement this morning. He is tolerating PO diet without difficulty. Review of vitals from today are normal. DM / HTN Iron deficiency anemia History of duodenal ulcer - Diet as tolerated - H/H stable, s/p PRBC transfusion, continue to monitor - Follow up hematology recommendations regarding iron supplementation - Patient will require outpatient elective EGD for surveillance of duodenal ulcer, to be scheduled in upcoming week. No further planned GI interventions, will sign off case. Please reconsult as necessary, thank you.
--- NOTE | 2018-02-26 14:12 | CP.PCM.PN ---
Subjective - Date & Time of Evaluation Date of Evaluation: 02/26/18 Time of Evaluation: 14:10 - Subjective Subjective: CHIEF COMPLAINTS TODAY : No specific complaints After 2 packed cells hemoglobin has dropped to 8.3 ROS. HEENT : N. Resp : No cough, wheezing ,pleuritic CP ,or hemoptysis Cardio : No anginal CP, PND, orthopnea, palpitation GI : No abd.pain, n/v ,diarrhea or GI bleeding . GAME SHOW HOST : No headache, vertigo, focal deficit. Musculoskel : No joint swelling , Derm : No rash Psych : Normal affect. Ext : No swelling ,calf pain PE. Pt. is alert awake in no distress. V.S As noted in the chart Head ,ear nose,throat and eyes : Normal. Neck : Supple with normal carotids. Lungs: Clear air entry. Heart : S1 & S2 normal with S4. No murmur. Abd : Soft non tender with normal bowel sounds. Neuro : Moves all ext. with no localized deficit. Ext : No edema with intact pulses.Non tender calves Derm : No rashes or decubitus ulcer. LABS/RADIOLOGY: CT scan of the abdomen shows enteritis and peptic ulcer disease ASSESSMENT/PLAN : Pt. is receiving another 2 packed cells for blood transfusion and iron therapy GI service as indicated outpatient endoscopy Objective - Vital Signs/Intake and Output Vital Signs (last 24 hours): Temp Pulse Resp BP Pulse Ox 97.3 F L 80 20 143/75 96 02/26/18 08:23 02/26/18 09:29 02/26/18 08:23 02/26/18 09:29 02/26/18 08:23 Intake and Output: 02/26/18 02/26/18 11:59 23:59 Intake Total 325 Balance 325 - Medications Medications: Current Medications Ferric Sodium Gluconate Complex 125 mg/ Sodium Chloride 110 mls @ 100 mls/hr IVPB 02/24/18 [facility] Last Admin: 02/24/18 17:58 Dose: 100 mls/hr Insulin Human Regular (Novolin R) 0 unit SC ACHS [facility]; Protocol Last Admin: 02/26/18 12:08 Dose: 3 units Lisinopril (Zestril) 10 mg PO DAILY [facility] Last Admin: 02/26/18 09:29 Dose: 10 mg Metformin HCl (Glucophage) 500 mg PO DAILY [facility] Last Admin: 02/26/18 09:29 Dose: 500 mg Pantoprazole Sodium (Protonix Ec Tab) 40 mg PO DAILY [facility] - Labs Labs: 02/26/18 06:44 02/25/18 06:36 PT 12.4 SECONDS (9.7-12.2) H 02/23/18 13:38 INR 1.1 02/23/18 13:38 APTT 26 SECONDS (21-34) 02/23/18 13:38
[2018-02-26] MEDS: Ferric Sodium Gluconat Complex 125 MG in Sodium Chloride 0.9% 100 ML IVPB SCH (18:00)
--- NOTE | 2018-02-26 22:53 | CP.PCM.PN ---
Subjective - Date & Time of Evaluation Date of Evaluation: 02/26/18 Time of Evaluation: 19:00 - Subjective Subjective: Feeling better s/p PRBC transfusion Objective - Vital Signs/Intake and Output Vital Signs (last 24 hours): Temp Pulse Resp BP Pulse Ox 99.1 F 68 20 117/75 100 02/26/18 15:00 02/26/18 15:00 02/26/18 15:00 02/26/18 15:00 02/26/18 15:00 Intake and Output: 02/26/18 02/27/18 18:59 06:59 Intake Total 400 Balance 400 - Medications Medications: Current Medications Ferric Sodium Gluconate Complex 125 mg/ Sodium Chloride 110 mls @ 100 mls/hr IVPB 1700 [facility] Stop: 03/04/18 18:05 Last Admin: 02/26/18 18:00 Dose: 100 mls/hr Insulin Human Regular (Novolin R) 0 unit SC ACHS [facility]; Protocol Last Admin: 02/26/18 22:32 Dose: Not Given Lisinopril (Zestril) 10 mg PO DAILY [facility] Last Admin: 02/26/18 09:29 Dose: 10 mg Metformin HCl (Glucophage) 500 mg PO DAILY [facility] Last Admin: 02/26/18 09:29 Dose: 500 mg Pantoprazole Sodium (Protonix Ec Tab) 40 mg PO DAILY [facility] - Labs Labs: 02/26/18 06:44 02/25/18 06:36 PT 12.4 SECONDS (9.7-12.2) H 02/23/18 13:38 INR 1.1 02/23/18 13:38 APTT 26 SECONDS (21-34) 02/23/18 13:38 - Head Exam Head Exam: ATRAUMATIC - Eye Exam Eye Exam: Normal appearance - ENT Exam ENT Exam: Mucous Membranes Dry - Respiratory Exam Respiratory Exam: NORMAL BREATHING PATTERN - Cardiovascular Exam Cardiovascular Exam: +S1, +S2 - GI/Abdominal Exam GI & Abdominal Exam: Normal Bowel Sounds Assessment and Plan (1) Anemia Assessment & Plan: iron deficiency s/p PRBC transfusion on IV iron outpatient EGD per GI Status: Acute
[2018-02-27 07:15] LABS: BASO # 0.1 K/uL (0.0-0.2); BASO % 0.7 % (0.0-2.0); EOS # 0.1 K/uL (0.0-0.7); EOS % 1.6 % (0.0-4.0); HEMOGLOBIN 8.7 g/dL (12.0-18.0); LYMPH # 1.2 K/uL (1.0-4.3); LYMPH % 14.8 % (20.0-40.0); MEAN CELL VOLUME 67.2 fL (80.0-94.0); MEAN CORPUSCULAR HEMOGLOBIN 20.8 pg (27.0-31.0); NEUT # 5.9 K/uL (1.8-7.0); NEUT % 70.9 % (50.0-75.0); RBC 4.21 Mil/uL (4.40-5.90); RED CELL DISTRIBUTION WIDTH 33.5 % (11.5-14.5); WHITE BLOOD COUNT 8.3 K/uL (4.8-10.8)
[2018-02-27 07:30] LABS: ALB/GLOB RATIO 1.2 (1.0-2.1); ALBUMIN 3.5 g/dL (3.5-5.0); ALT/SGPT 19 U/L (21-72); AST/SGOT 13 U/L (17-59); BLOOD UREA NITROGEN 20 mg/dL (9-20); CALCIUM 8.3 mg/dl (8.6-10.4); GFR NON-AFRICAN AMERICAN > 60
[2018-02-27] MEDS: (Novolin R) Insulin Human Regular 100 units/ml vial SC SCH ×4 (07:54→21:43)
[2018-02-27] MEDS: Pantoprazole 40 mg EC Tab PO SCH (09:41)
--- NOTE | 2018-02-27 16:03 | CP.PCM.PN ---
Subjective - Date & Time of Evaluation Date of Evaluation: 02/27/18 Time of Evaluation: 16:02 - Subjective Subjective: CHIEF COMPLAINTS TODAY : No specific complaints After 4 packed cells hemoglobin has dropped to 8.8 ROS. HEENT : N. Resp : No cough, wheezing ,pleuritic CP ,or hemoptysis Cardio : No anginal CP, PND, orthopnea, palpitation GI : No abd.pain, n/v ,diarrhea or GI bleeding . 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 Musculoskel : No joint swelling , Derm : No rash Psych : Normal affect. Ext : No swelling ,calf pain PE. Pt. is alert awake in no distress. V.S As noted in the chart Head ,ear nose,throat and eyes : Normal. Neck : Supple with normal carotids. Lungs: Clear air entry. Heart : S1 & S2 normal with S4. No murmur. Abd : Soft non tender with normal bowel sounds. Neuro : Moves all ext. with no localized deficit. Ext : No edema with intact pulses.Non tender calves Derm : No rashes or decubitus ulcer. LABS/RADIOLOGY: CT scan of the abdomen shows enteritis and peptic ulcer disease ASSESSMENT/PLAN : On IV iron Monitor H/H No GI procedures planned Objective - Vital Signs/Intake and Output Vital Signs (last 24 hours): Temp Pulse Resp BP Pulse Ox 98.8 F 70 20 130/69 98 02/27/18 07:00 02/27/18 09:40 02/27/18 07:00 02/27/18 09:40 02/27/18 07:00 Intake and Output: 02/27/18 02/27/18 11:59 23:59 Intake Total 400 Balance 400 - Medications Medications: Current Medications Ferric Sodium Gluconate Complex 125 mg/ Sodium Chloride 110 mls @ 100 mls/hr IVPB 1700 REPLACED BY [facility] Stop: 03/04/18 18:05 Last Admin: 02/26/18 18:00 Dose: 100 mls/hr Insulin Human Regular (Novolin R) 0 unit SC ACHS REPLACED BY [facility]; Protocol Last Admin: 02/27/18 12:21 Dose: Not Given Lisinopril (Zestril) 10 mg PO DAILY [facility]PL[facility]ED BY [facility] Last Admin: 02/27/18 09:41 Dose: 10 mg Metformin HCl (Glucophage) 500 mg PO DAILY [facility]PL[facility] BY [facility] Last Admin: 01/13/19 09:41 Dose: 500 mg Pantoprazole Sodium (Protonix Ec Tab) 40 mg PO DAILY [facility] Last Admin: 02/27/18 09:41 Dose: 40 mg - Labs Labs: 02/27/18 07:02 02/27/18 07:02 PT 12.4 SECONDS (9.7-12.2) H 02/23/18 13:38 INR 1.1 02/23/18 13:38 APTT 26 SECONDS (21-34) 02/23/18 13:38
[2018-02-27] MEDS: Ferric Sodium Gluconat Complex 125 MG in Sodium Chloride 0.9% 100 ML IVPB SCH (18:22)
[2018-02-28 07:06] LABS: BASO % 0.5 % (0.0-2.0); EOS # 0.1 K/uL (0.0-0.7); EOS % 1.5 % (0.0-4.0); HEMOGLOBIN 9.1 g/dL (12.0-18.0); LYMPH # 1.2 K/uL (1.0-4.3); LYMPH % 13.8 % (20.0-40.0); MEAN CELL VOLUME 67.7 fL (80.0-94.0); MEAN CORPUSCULAR HEMOGLOBIN 21.4 pg (27.0-31.0); MEAN CORPUSCULAR HGB CONC 31.5 g/dL (33.0-37.0); MONO % 11.6 % (0.0-10.0); NEUT # 6.1 K/uL (1.8-7.0); NEUT % 72.6 % (50.0-75.0); NRBC % 0.1 % (0.0-2.0); RBC 4.28 Mil/uL (4.40-5.90); RED CELL DISTRIBUTION WIDTH 34.2 % (11.5-14.5); WHITE BLOOD COUNT 8.5 K/uL (4.8-10.8)
[2018-02-28 07:20] VITALS: BP 131/72; PULSE 77; RESP 18; TEMP 99.5; O2SAT 98
[2018-02-28] MEDS: (Novolin R) Insulin Human Regular 100 units/ml vial SC SCH ×2 (08:17→12:37)
[2018-02-28] MEDS: Pantoprazole 40 mg EC Tab PO SCH (09:42)
--- NOTE | 2018-02-28 11:44 | CP.PCM.PN ---
Subjective - Date & Time of Evaluation Date of Evaluation: 02/28/18 Time of Evaluation: 11:44 - Subjective Subjective: CHIEF COMPLAINTS TODAY : No specific complaints After 4 packed cells hemoglobin has dropped to 9.1 ROS. HEENT : N. Resp : No cough, wheezing ,pleuritic CP ,or hemoptysis Cardio : No anginal CP, PND, orthopnea, palpitation GI : No abd.pain, n/v ,diarrhea or GI bleeding . 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 Musculoskel : No joint swelling , Derm : No rash Psych : Normal affect. Ext : No swelling ,calf pain PE. Pt. is alert awake in no distress. V.S As noted in the chart Head ,ear nose,throat and eyes : Normal. Neck : Supple with normal carotids. Lungs: Clear air entry. Heart : S1 & S2 normal with S4. No murmur. Abd : Soft non tender with normal bowel sounds. Neuro : Moves all ext. with no localized deficit. Ext : No edema with intact pulses.Non tender calves Derm : No rashes or decubitus ulcer. LABS/RADIOLOGY: CT scan of the abdomen shows enteritis and peptic ulcer disease ASSESSMENT/PLAN : On IV iron Monitor H/H No GI procedures planned Objective - Vital Signs/Intake and Output Vital Signs (last 24 hours): Temp Pulse Resp BP Pulse Ox 99.5 F 77 18 131/72 98 02/28/18 07:00 02/28/18 07:00 02/28/18 07:00 02/28/18 07:00 02/28/18 07:00 Intake and Output: 02/27/18 02/28/18 23:59 11:59 Intake Total 400 Balance 400 - Medications Medications: Current Medications Ferric Sodium Gluconate Complex 125 mg/ Sodium Chloride 110 mls @ 100 mls/hr IVPB 1700 [facility] Stop: 03/04/18 18:05 Last Admin: 02/27/18 18:22 Dose: 100 mls/hr Insulin Human Regular (Novolin R) 0 unit SC ACHS [facility]; Protocol Last Admin: 02/28/18 08:17 Dose: Not Given Lisinopril (Zestril) 10 mg PO DAILY [facility] Last Admin: 02/28/18 09:42 Dose: 10 mg Metformin HCl (Glucophage) 500 mg PO DAILY [facility] Last Admin: 02/28/18 09:42 Dose: 500 mg Pantoprazole Sodium (Protonix Ec Tab) 40 mg PO DAILY [facility] Last Admin: 02/28/18 09:42 Dose: 40 mg - Labs Labs: 02/28/18 06:43 02/27/18 07:02 PT 12.4 SECONDS (9.7-12.2) H 02/23/18 13:38 INR 1.1 02/23/18 13:38 APTT 26 SECONDS (21-34) 02/23/18 13:38
--- NOTE | 2018-02-28 14:38 | CP.PCM.PN ---
Subjective - Date & Time of Evaluation Date of Evaluation: 02/28/18 Time of Evaluation: 11:25 - Subjective Subjective: Patient seen today, denies any complaints , oob ambulating s/p 4 units of PRBC transfusion. labs reviewed- hgb - improved- 9.1 today Objective - Vital Signs/Intake and Output Vital Signs (last 24 hours): Temp Pulse Resp BP Pulse Ox 99.5 F 77 18 131/72 98 02/28/18 07:00 02/28/18 07:00 02/28/18 07:00 02/28/18 07:00 02/28/18 07:00 - Medications Medications: Current Medications Ferric Sodium Gluconate Complex 125 mg/ Sodium Chloride 110 mls @ 100 mls/hr IVPB 1700 [facility] Stop: 03/04/18 18:05 Last Admin: 02/27/18 18:22 Dose: 100 mls/hr Insulin Human Regular (Novolin R) 0 unit SC ACHS [facility]; Protocol Last Admin: 02/28/18 12:37 Dose: 3 units Lisinopril (Zestril) 10 mg PO DAILY [facility] Last Admin: 02/28/18 09:42 Dose: 10 mg Metformin HCl (Glucophage) 500 mg PO DAILY [facility] Last Admin: 02/28/18 09:42 Dose: 500 mg Pantoprazole Sodium (Protonix Ec Tab) 40 mg PO DAILY [facility] Last Admin: 02/28/18 09:42 Dose: 40 mg - Labs Labs: 02/28/18 06:43 02/27/18 07:02 PT 12.4 SECONDS (9.7-12.2) H 02/23/18 13:38 INR 1.1 02/23/18 13:38 APTT 26 SECONDS (21-34) 02/23/18 13:38 Assessment and Plan - Assessment and Plan (Free Text) Assessment: A/P 62 yr old male with pmhx of DVT, iron def. anemia admitted with acute anemia s/p 4 units of PRBC hgb - improved aand stable after transfusion - 9.1 today Iron def, anemia and started on IV ferlicet Dr. rinaldi [facility] called for consult and recommends out patient f/u for repeat endoscopy for hx gastric ulcer in the past D/w Dr. Yusuf, cleared for discharge from hematology standpoint and f/u with his office in 1 week D/w Dr. miller, stable for discharge and f/u with his office n wednesday discharge plan discussed with patient who understands and agrees with plan patient instructed to returns to ED if symptoms returns
--- NOTE | 2018-03-03 11:35 | CP.PCM.DIS ---
Provider - Provider Date of Admission: 02/23/18 15:01 Attending physician: Driss Nuñez MD Consults: 02/23/18 20:16 Hematology Oncology Consult Routine Comment: low hgb Consulting Provider: Ghassan Yusuf Consulting Physician: Ghassan Yusuf Reason for Consult: low hgb Time Spent in preparation of Discharge (in minutes): 35 Hospital Course - Lab Results Lab Results: Most Recent Lab Values WBC 8.5 K/uL (4.8-10.8) 02/28/18 06:43 RBC 4.28 Mil/uL (4.40-5.90) L 02/28/18 06:43 Hgb 9.1 g/dL (12.0-18.0) L 02/28/18 06:43 Hct 29.0 % (35.0-51.0) L 02/28/18 06:43 MCV 67.7 fL (80.0-94.0) L 02/28/18 06:43 MCH 21.4 pg (27.0-31.0) L 02/28/18 06:43 MCHC 31.5 g/dL (33.0-37.0) L 02/28/18 06:43 RDW 34.2 % (11.5-14.5) H 02/28/18 06:43 Plt Count 226 K/uL (130-400) 02/28/18 06:43 MPV 9.0 fL (7.2-11.7) 02/28/18 06:43 Neut % (Auto) 72.6 % (50.0-75.0) 02/28/18 06:43 Lymph % (Auto) 13.8 % (20.0-40.0) L 02/28/18 06:43 [place] % (Auto) 11.6 % (0.0-10.0) H 02/28/18 06:43 Eos % (Auto) 1.5 % (0.0-4.0) 02/28/18 06:43 Baso % (Auto) 0.5 % (0.0-2.0) 02/28/18 06:43 Neut # (Auto) 6.1 K/uL (1.8-7.0) 02/28/18 06:43 Lymph # (Auto) 1.2 K/uL (1.0-4.3) 02/28/18 06:43 [place] # (Auto) 1.0 K/uL (0.0-0.8) H 02/28/18 06:43 Eos # (Auto) 0.1 K/uL (0.0-0.7) 02/28/18 06:43 Baso # (Auto) 0.0 K/uL (0.0-0.2) 02/28/18 06:43 Differential Comment 02/27/18 07:02 PT 12.4 SECONDS (9.7-12.2) H 02/23/18 13:38 INR 1.1 02/23/18 13:38 APTT 26 SECONDS (21-34) 02/23/18 13:38 Sodium 136 mmol/L (132-148) 02/27/18 07:02 Potassium 4.5 mmol/L (3.6-5.2) 02/27/18 07:02 Chloride 105 mmol/L (98-107) 02/27/18 07:02 Carbon Dioxide 25 mmol/L (22-30) 02/27/18 07:02 Anion Gap 11 (10-20) 02/27/18 07:02 BUN 20 mg/dL (9-20) 02/27/18 07:02 Creatinine 0.8 mg/dL (0.8-1.5) 02/27/18 07:02 Est GFR ( Amer) > 60 02/27/18 07:02 Est GFR (Non-Af Amer) > 60 02/27/18 07:02 POC Glucose (mg/dL) 217 mg/dL (65-110) H 02/28/18 11:21 Random Glucose 152 mg/dL (75-110) H 02/27/18 07:02 Calcium 8.3 mg/dl (8.6-10.4) L 02/27/18 07:02 Iron 17 ug/dL (49-181) L 02/24/18 12:22 TIBC 457 ug/dL (250-450) H 02/24/18 12:22 % Saturation 4 (20-55) L 02/24/18 12:22 Total Bilirubin 0.4 mg/dL (0.2-1.3) 02/27/18 07:02 AST 13 U/L (17-59) L 02/27/18 07:02 ALT 19 U/L (21-72) L 02/27/18 07:02 Alkaline Phosphatase 71 U/L (38-126) 02/27/18 07:02 Total Protein 6.3 g/dL (6.3-8.3) 02/27/18 07:02 Albumin 3.5 g/dL (3.5-5.0) 02/27/18 07:02 Globulin 2.8 gm/dL (2.2-3.9) 02/27/18 07:02 Albumin/Globulin Ratio 1.2 (1.0-2.1) 02/27/18 07:02 Urine Color Yellow (YELLOW) 02/25/18 22:36 Urine Clarity Clear (Clear) 02/25/18 22:36 Urine pH 5.0 (5.0-8.0) 02/25/18 22:36 Ur Specific [place] 1.020 (1.003-1.030) 02/25/18 22:36 Urine Protein Negative mg/dL (NEGATIVE) 02/25/18 22:36 Urine Glucose (UA) Normal mg/dL (Normal) 02/25/18 22:36 Urine Ketones Negative mg/dL (NEGATIVE) 02/25/18 22:36 Urine Blood Negative (NEGATIVE) 02/25/18 22:36 Urine Nitrate Negative (NEGATIVE) 02/25/18 22:36 Urine Bilirubin Negative (NEGATIVE) 02/25/18 22:36 Urine Urobilinogen Normal mg/dL (0.2-1.0) 02/25/18 22:36 Ur Leukocyte Esterase Neg Beatriz/uL (Negative) 02/25/18 22:36 Urine WBC (Auto) < 1 /hpf (0-5) 02/25/18 22:36 Urine RBC (Auto) < 1 /hpf (0-3) 02/25/18 22:36 Urine Bacteria Rare (<OCC) 02/25/18 22:36 Blood Type B POSITIVE 02/23/18 13:38 Antibody Screen Negative 02/23/18 13:38 - Hospital Course Hospital Course: Patient was referred from the nursing care partner office after outpatient blood test was done and the hemoglobin was 5.6 g/dL. Patient is also complaining of severe fatigue tiredness and dyspnea on exertion. Patient is a history of iron deficiency anemia as received blood transfusion and iron IV therapy year ago. Patient also had an upper endoscopy done which showed a gastric ulcer which was not bleeding biopsies were negative for any cancer Currently patient is denying any GI symptoms of epigastric pain and nausea hematemesis melena or black stools or reflux symptoms. Patient received 4 units of packed cells prior to discharge hemoglobin was 9.1 GI consult was obtained did not perform any in hospital GI procedure. Patient was advised to follow with GI for endoscopy to follow up on the gastric ulcer. Hematology consult was obtained patient was given iron therapy for 2 days and will continue outpatient treatment for iron deficiency anemia. Patient is stable and will discharge him home Discharge Exam - Head Exam Head Exam: ATRAUMATIC Discharge Plan - Discharge Medications Prescriptions: Ferrous Sulfate [Feosol] 325 mg PO BID #60 tab Pantoprazole [Protonix] 40 mg PO DAILY #20 ect - Follow Up Plan Condition: GUARDED Disposition: HOME/ ROUTINE Instructions: Heart Healthy Diet, Diabetes Exchange Diet, Diabetes Diet , Ferrous Sulfate, Pantoprazole, Normocytic Normochromic Anemia (DC) Additional Instructions: Please follow up with Dr. Nuñez office on Wednesday -call and make appointment- (needs follow up labs) Please follow up with Dr. Yusuf office in 1 week Please follow up with Dr. Yee . 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
== END 2018-02-28 14:44 | disposition home or self-care (01) | DRG 812 ==
LOC: C.ER 11:53 → C.9E 15:01 → C.6T 18:18
PROVIDERS: ADMIT Internal Medicine Cardiovascular Disease; ATTEND Internal Medicine Cardiovascular Disease
PROC: 30233N1 Transfusion of Nonautologous Red Blood Cells into Peripheral Vein, Percutaneous Approach (ICD-10-PCS; principal; 2018-02-23)
PROC: 30233N1 Transfusion of Nonautologous Red Blood Cells into Peripheral Vein, Percutaneous Approach (ICD-10-PCS; 2018-02-25)
DX: D50.0 Iron deficiency anemia secondary to blood loss (chronic) (principal); K25.9 Gastric ulcer, unspecified as acute or chronic, without hemorrhage or perforation; K26.9 Duodenal ulcer, unspecified as acute or chronic, without hemorrhage or perforation; I10 Essential (primary) hypertension; E11.9 Type 2 diabetes mellitus without complications; Z86.19 Personal history of other infectious and parasitic diseases; Z86.718 Personal history of other venous thrombosis and embolism; Z90.49 Acquired absence of other specified parts of digestive tract; Z86.010 Personal history of colon polyps; Z79.4 Long term (current) use of insulin

== ENCOUNTER 2018-03-16 08:12 | Day surgery (SDC) | payer OTHER ==
[2018-03-15 10:42] VITALS: BMI 25.7
[2018-03-16] MEDS ORDERED: Lactated Ringer's 500 ML IV SCH (10:15)
[2018-03-16] MEDS ORDERED: Midazolam 2 MG/2 ML VIAL ONE (10:33)
[2018-03-16] MEDS ORDERED: Propofol 10 mg/ml Inj (20 ML) ONE (10:33)
[2018-03-16 10:54] VITALS: O2SAT 100
[2018-03-16] MEDS ORDERED: Lidocaine Hydrochloride 5 ML INJ ONE (10:57)
[2018-03-16 11:18] VITALS: TEMP 98.6
[2018-03-16 12:55] VITALS: BP 123/64; PULSE 67; RESP 13
== END 2018-03-16 12:15 | disposition home or self-care (01) ==
LOC: C.ENDO 08:12
PROVIDERS: ATTEND Internal Medicine Gastroenterology
DX: Z12.11 Encounter for screening for malignant neoplasm of colon (principal); K57.30 Diverticulosis of large intestine without perforation or abscess without bleeding; K64.1 Second degree hemorrhoids; K29.50 Unspecified chronic gastritis without bleeding; K26.9 Duodenal ulcer, unspecified as acute or chronic, without hemorrhage or perforation; Z87.19 Personal history of other diseases of the digestive system; I10 Essential (primary) hypertension; E11.9 Type 2 diabetes mellitus without complications
CPT/HCPCS: 43239; 45378; 82948; 88305; 88313; 88342; J2250; J2704; J7120